=== PATIENT | female | born 1995 | race Caucasian/White ===

== ENCOUNTER 2017-06-15 14:04 | Emergency (ER) | payer OTHER ==
[2017-06-15] MEDS ORDERED: SODIUM CHLORIDE 0.9% 1,000 ML IV STA (15:26)
[2017-06-15] MEDS ORDERED: diphenhydrAMINE 50 MG/ML 1 ML VIAL IVP STA (15:28)
[2017-06-15] MEDS ORDERED: METOCLOPRAMIDE 5 MG/ML 2 ML VIAL IVP STA (15:29)
--- NOTE | 2017-06-15 15:36 | ED ---
General Adult HPI - General Chief complaint: Dizziness Stated complaint: dizzy Time Seen by Provider: 06/15/17 15:09 Source: patient Mode of arrival: ambulatory Limitations: no limitations - History of Present Illness Initial comments: 22-year-old female presents to the emergency department with a chief complaint of dizziness. Patient denies any loss of consciousness or falling. Patient is currently 9 weeks . She has been vomiting multiple times a day for the past couple weeks. Patient states she is able to keep fluids down. She also complains of a headache behind her eyes. She has tried Tylenol once with minimal relief. She states she has been congested for 2 weeks and has been taking Claritin as prescribed by her OB. Denies any tenderness of the facial sinuses or drainage from the nares. Her OB also prescribed her Zofran which she refused to take because of concerns of side effects. Patient denies any fevers or chills or cough. Patient denies any abdominal pain, cramping, or vaginal bleeding. Patient denies chest pain and shortness of breath. - Related Data Allergies Allergy/AdvReac Type Severity Reaction Status Date / Time Pertussis Vaccines Allergy Anaphylaxis Verified 06/15/17 14:31 Review of Systems ROS Statement: Those systems with pertinent positive or pertinent negative responses have been documented in the HPI. ROS Other: All systems not noted in ROS Statement are negative. Past Medical History Past Medical History: No Reported History History of Any Multi-Drug Resistant Organisms: None Reported Past Surgical History: Adenoidectomy, Tonsillectomy Past Psychological History: No Psychological Hx Reported Smoking Status: Never smoker Past Alcohol Use History: None Reported Past Drug Use History: None Reported General Exam Limitations: no limitations Eye exam: Present: normal appearance, PERRL, EOMI. Absent: scleral icterus, conjunctival injection, periorbital swelling ENT exam: Present: normal exam, mucous membranes moist Neck exam: Present: normal inspection. Absent: tenderness, meningismus, lymphadenopathy Respiratory exam: Present: normal lung sounds bilaterally. Absent: respiratory distress, wheezes, rales, rhonchi, stridor Cardiovascular Exam: Present: regular rate, normal rhythm, normal heart sounds. Absent: systolic murmur, diastolic murmur, rubs, gallop, clicks GI/Abdominal exam: Present: soft, normal bowel sounds. Absent: distended, tenderness, guarding, rebound, rigid Extremities exam: Present: normal inspection. Absent: pedal edema Neurological exam: Present: alert, oriented X3, CN II-XII intact Psychiatric exam: Present: normal affect, normal mood Skin exam: Present: warm, dry, intact, normal color. Absent: rash Course Vital Signs 06/15/17 14:29 Temperature 98.0 F Pulse Rate 93 Respiratory 18 Rate Blood Pressure 118/76 O2 Sat by Pulse 96 Oximetry Medical Decision Making - Medical Decision Making 22-year-old female presents to the emergency department for dizziness. Patient is 9 weeks and has been vomiting multiple times a day. Patient cannot keep water down today. Patient also complains of a headache behind her eyes and has had congestion for which she is taking Claritin. No fevers, facial tenderness, or drainage from the nares. This is likely a viral infection or ALLERGIES. Patient has no complaints of abdominal pain, cramping or vaginal bleeding. Patient's vitals are within normal limits. Patient CBC, CMP, and UA came back within normal limits. Patient was given a liter of fluid as well as Reglan, Benadryl, and Tylenol. Patient states she is feeling much better at this time. She is no longer nauseous nor dizzy. She does not feel lightheaded. She is ready to go home. She will continue to take Claritin during the day and Benadryl at night. She will also take Tylenol regularly for the headache until it is no longer an issue. Patient will discuss with OB and primary care options for further nausea control. - Lab Data Result diagrams: 06/15/17 15:41 06/15/17 15:41 Lab Results 06/15/17 06/15/17 06/15/17 Range/Units 15:41 15:41 15:41 WBC 9.2 (3.8-10.6) k/uL RBC 4.95 (3.80-5.40) m/uL Hgb 14.2 (11.4-16.0) gm/dL Hct 40.4 (34.0-46.0) % MCV 81.6 (80.0-100.0) fL MCH 28.6 (25.0-35.0) pg MCHC 35.1 (31.0-37.0) g/dL RDW 12.7 (11.5-15.5) % Plt Count 253 (150-450) k/uL Neutrophils % 74 % Lymphocytes % 18 % Monocytes % 6 % Eosinophils % 0 % Basophils % 0 % Neutrophils # 6.8 (1.3-7.7) k/uL Lymphocytes # 1.7 (1.0-4.8) k/uL Monocytes # 0.5 (0-1.0) k/uL Eosinophils # 0.0 (0-0.7) k/uL Basophils # 0.0 (0-0.2) k/uL Sodium 138 (137-145) mmol/L Potassium 3.6 (3.5-5.1) mmol/L Chloride 100 (98-107) mmol/L Carbon Dioxide 26 (22-30) mmol/L Anion Gap 12 mmol/L BUN 9 (7-17) mg/dL Creatinine 0.55 (0.52-1.04) mg/dL Est GFR (CKD-EPI)AfAm >90 (>60 ml/min/1.73 sqM) Est GFR (CKD-EPI)NonAf >90 (>60 ml/min/1.73 sqM) Glucose 79 (74-99) mg/dL Calcium 9.7 (8.4-10.2) mg/dL Total Bilirubin 0.3 (0.2-1.3) mg/dL AST 37 H (14-36) U/L ALT 49 (9-52) U/L Alkaline Phosphatase 51 (38-126) U/L Total Protein 7.0 (6.3-8.2) g/dL Albumin 4.3 (3.5-5.0) g/dL Urine Color Yellow Urine Appearance Cloudy H (Clear) Urine pH 6.0 (5.0-8.0) Ur Specific [place] 1.018 (1.001-1.035) Urine Protein Negative (Negative) Urine Glucose (UA) Negative (Negative) Urine Blood Negative (Negative) Urine Nitrite Negative (Negative) Urine Bilirubin Negative (Negative) Urine Urobilinogen <2.0 (<2.0) mg/dL Ur Leukocyte Esterase Negative (Negative) Urine RBC 2 (0-5) /hpf Urine WBC 2 (0-5) /hpf Ur Squamous Epith Cells 7 H (0-4) /hpf Urine Bacteria Rare H (None) /hpf Urine Mucus Rare H (None) /hpf Disposition Clinical Impression: Vomiting or nausea of Disposition: HOME SELF-CARE Condition: Good Instructions: Nausea and Vomiting in (ED), Dizziness (ED) Additional Instructions: Please return to the emergency department if symptoms worsen or U lose consciousness. Please continue Claritin during the day and take Benadryl at night. Please use Tylenol for pain relief. Please follow-up with primary care and OB for options regarding nausea. Referrals: Nicholas Leiva MD [Primary Care Provider] - 1-2 days Time of Disposition: 16:24
[2017-06-15] MEDS: ACETAMINOPHEN TAB 500 MG TAB PO STA ×2 (15:51→15:53)
[2017-06-15 16:00] LABS: Basophils % (A) 0 %; Eosinophils % (A) 0 %; HCT 40.4 % (34.0-46.0); HGB 14.2 gm/dL (11.4-16.0); Lymphocytes # (A) 1.7 k/uL (1.0-4.8); Lymphocytes % (A) 18 %; MCH 28.6 pg (25.0-35.0); MCHC 35.1 g/dL (31.0-37.0); MCV 81.6 fL (80.0-100.0); Monocytes # (A) 0.5 k/uL (0-1.0); Monocytes % (A) 6 %; Neutrophils # (A) 6.8 k/uL (1.3-7.7); Neutrophils % (A) 74 %; Platelet Count 253 k/uL (150-450); RBC 4.95 m/uL (3.80-5.40); RDW 12.7 % (11.5-15.5); WBC 9.2 k/uL (3.8-10.6)
[2017-06-15 16:07] LABS: ALT 49 U/L (9-52); AST 37 U/L (14-36); Albumin 4.3 g/dL (3.5-5.0); Alkaline Phosphatase 51 U/L (38-126); Anion Gap 12 mmol/L; Blood Urea Nitrogen 9 mg/dL (7-17); Calcium 9.7 mg/dL (8.4-10.2); Carbon Dioxide 26 mmol/L (22-30); Chloride 100 mmol/L (98-107); Glucose 79 mg/dL (74-99); Potassium 3.6 mmol/L (3.5-5.1); Sodium 138 mmol/L (137-145); Total Bilirubin 0.3 mg/dL (0.2-1.3)
[2017-06-15 16:08] LABS: Appearance,Urine Cloudy (Clear); Bacteria,Urine Rare /hpf; Bilirubin,Urine Negative (Negative); Blood,Urine Negative (Negative); Color,Urine Yellow; Glucose,Urine (UA) Negative (Negative); Ketones,Urine 2+ (Negative); Leukocyte Esterase,Urine Negative (Negative); Mucus,Urine Rare /hpf; Nitrite,Urine Negative (Negative); Protein,Urine Negative (Negative); RBC,Urine 2 /hpf (0-5); Specific Gravity,Urine 1.018 (1.001-1.035); Squamous Epithelial Cell,Urine 7 /hpf (0-4); Urobilinogen,Urine <2.0 mg/dL (<2.0); WBC,Urine 2 /hpf (0-5)
[2017-06-15 16:28] VITALS: BP 120/62; PULSE 78; RESP 15; TEMP 97.9
== END 2017-06-15 16:57 | disposition home or self-care (01) ==
LOC: EC 14:04
DX: O21.0 Mild hyperemesis gravidarum (principal); O99.89 Other specified diseases and conditions complicating pregnancy, childbirth and the puerperium; R42 Dizziness and giddiness; R51 Headache; Z3A.09 9 weeks gestation of pregnancy; Z88.7 Allergy status to serum and vaccine
CPT/HCPCS: 99284; 96374; 96375; 36415; 80053; 85025; 81001; J1200; J2765

== ENCOUNTER 2020-06-18 06:05 | Inpatient (IN) | payer OTHER ==
[2020-06-18] MEDS ORDERED: METHYLERGONOVINE 0.2 MG/ML 1 ML AMP IM PRN (06:17)
[2020-06-18] MEDS ORDERED: CARBOPROST TROMETHAMINE 250 MCG/ML 1 ML AMP IM PRN (06:17)
[2020-06-18] MEDS ORDERED: OXYTOCIN 10 UNIT/ML 1 ML VIAL IM PRN (06:17)
[2020-06-18] MEDS ORDERED: TERBUTALINE 1 MG/ML VIAL SQ PRN (06:17)
[2020-06-18] MEDS ORDERED: LIDOCAINE 0.5% (PF) 5 MG/ML (50 ML SDV) SQ PRN (06:17)
[2020-06-18] MEDS ORDERED: OXYTOCIN 30 UNITS/500 ML NS 30 UNIT in SALINE 1 500ML.BAG IV SCH (06:30)
[2020-06-18] MEDS: LACTATED RINGERS 1,000 ML IV SCH ×2 (06:42→13:38)
[2020-06-18 07:24] LABS: Basophils % (A) 1 %; Eosinophils # (A) 0.1 k/uL (0-0.7); Eosinophils % (A) 1 %; HCT 39.7 % (34.0-46.0); HGB 12.9 gm/dL (11.4-16.0); Hypochromasia Slight; Lymphocytes # (A) 1.9 k/uL (1.0-4.8); Lymphocytes % (A) 25 %; MCH 26.4 pg (25.0-35.0); MCHC 32.5 g/dL (31.0-37.0); Mean Platelet Volume 9.3; Monocytes # (A) 0.6 k/uL (0-1.0); Monocytes % (A) 7 %; Neutrophils # (A) 4.9 k/uL (1.3-7.7); Neutrophils % (A) 65 %; Platelet Count 171 k/uL (150-450); RDW 14.3 % (11.5-15.5); WBC 7.6 k/uL (3.8-10.6)
[2020-06-18] MEDS ORDERED: BUTORPHANOL 1 MG/ML 1 ML VIAL IV PRN (07:56)
--- NOTE | 2020-06-18 08:35 | P.HPOB ---
History of Present Illness H&P Date: 06/18/20 Chief Complaint: Here for induction of labor This is a 25-year-old 2 para 1001 EDC 06/18/2020 at 40 weeks gestation. Patient presents today for induction of labor. She is having mild irregular spontaneous contractions. Fetus is been active throughout the . She denies vaginal bleeding or fluid leakage. Past medical history is negative. Past surgical history cholecystectomy 2018, adenoidectomy and tonsillectomy 2002. Current medications vitamins daily. ALLERGIES to pertussis vaccination, to which she reports convulsion. Family history significant for hypertension, diabetes, cardiac issues. Obstetric history significant for 42 week vaginal delivery 2018 with a third- degree laceration. Social history patient is , she is employed, she denies tobacco alcohol or drug use. history blood type is A+, rubella status nonimmune. VDRL testing, urine culture, hepatitis B surface antigen, HIV testing, gonorrhea and chlamydia cultures, group B strep cultures all negative. One-hour Glucola within normal limits. On exam patient is 5 foot 3 inches, 166 pounds, blood pressure on admission 116/74. Vital signs are stable and she is afebrile. General physical exam is within normal limits. Cervix is 3 cm dilated, 60-70% effaced, -2 station, soft, anterior. Artificial amniorrhexis reveals clear fluid. heart rate is consistent with reactive NST. Impression: 40 week intrauterine , here for induction of labor. All signs reassuring. Plan: Continue close maternal and surveillance. Analgesic options have been reviewed. Oxytocin per hospital protocol. Anticipate normal spontaneous vaginal delivery. The possibility of repeat third-degree laceration or greater has been discussed with the patient and this risk is acceptable to her and her spouse. section and is declined. Review of Systems Constitutional: Reports as per HPI Past Medical History Past Medical History: No Reported History History of Any Multi-Drug Resistant Organisms: None Reported Past Surgical History: Adenoidectomy, Cholecystectomy, Tonsillectomy Past Anesthesia/Blood Transfusion Reactions: No Reported Reaction Past Psychological History: No Psychological Hx Reported Smoking Status: Never smoker Past Alcohol Use History: None Reported Past Drug Use History: None Reported - Past Family History Father History Unknown: Yes Mother History Unknown: Yes Medications and Allergies Home Medications Medication Instructions Recorded Confirmed Type Pnv,Calcium 72/Iron/Folic Acid 1 tab PO DAILY 06/15/17 06/18/20 History [ Plus Tablet] Allergies Allergy/AdvReac Type Severity Reaction Status Date / Time Pertussis Vaccines Allergy Anaphylaxis Verified 06/18/20 06:16 Exam Intake and Output 06/17/20 06/18/20 06/18/20 22:59 06:59 14:59 Other: Weight 75.296 kg 75.296 kg See dictation under HPI please Results Result Diagrams: 06/18/20 06:53 Assessment and Plan Assessment: 40 week intrauterine , here for induction of labor. History of third- degree laceration in the past, declining option of . All signs reassuring Plan: Oxytocin per hospital protocol. Close maternal and surveillance. Anticipate normal spontaneous vaginal delivery. Analgesic options reviewed with the patient. Time with Patient: Less than 30
[2020-06-18] MEDS ORDERED: fentaNYL (PF) 50 MCG/ML 5 ML AMP ONE (13:40)
[2020-06-18] MEDS ORDERED: SODIUM CHLORIDE 0.9% 100 ML BAG ONE (13:40)
[2020-06-18] MEDS ORDERED: ROPIVACAINE 5MG/ML 20ML VIAL ONE (13:40)
[2020-06-18 14:39] LABS: Glucose,Whole Blood 80 mg/dL (75-99)
[2020-06-18] MEDS ORDERED: diphenhydrAMINE ELIXIR 25 MG/10 ML CUP PO PRN (15:50)
[2020-06-18] MEDS ORDERED: LANOLIN CREAM 5 GM TUBE TOPICAL PRN (15:50)
[2020-06-18] MEDS ORDERED: diphenhydrAMINE 50 MG/ML 1 ML VIAL IVP PRN ×2 (15:50)
[2020-06-18] MEDS ORDERED: ACETAMINOPHEN TAB 325 MG TAB PO PRN (15:50)
[2020-06-18] MEDS ORDERED: diphenhydrAMINE 25 MG CAP PO PRN (15:50)
[2020-06-18] MEDS ORDERED: SIMETHICONE 80 MG CHEWABLE PO PRN (15:50)
[2020-06-18] MEDS ORDERED: diphenhydrAMINE 50 MG CAP PO PRN (15:50)
[2020-06-18] MEDS ORDERED: BENZOCAINE/MENTHOL SPRAY 1 GM/SPRAY AEROSOL TOPICAL PRN (15:50)
[2020-06-18] MEDS ORDERED: ZOLPIDEM 5 MG TAB PO PRN (15:50)
[2020-06-18] MEDS ORDERED: HYDROCORTISONE 2.5% RECTAL CREAM 30 GM TUBE RECTAL PRN (15:50)
[2020-06-18] MEDS ORDERED: MEASLES-MUMPS-RUBELLA VACC/PF 12,500 UNIT/0.5 ML VIAL SQ ONE (15:50)
--- NOTE | 2020-06-18 15:50 | P.PROBDLV ---
Vaginal Delivery Note - . Vaginal Delivery Note: This is a 25-year-old white female 2 para 1001 EDC 06/18/2020 at 40 weeks gestation. Patient presents today for induction. Her history is significant for a third to fourth degree laceration with previous delivery, patient declining option for and wishing vaginal delivery. Blood type is A+, rubella status nonimmune, group B strep cultures negative. Please see history and physical for details. On admission artificial amniorrhexis revealed clear fluid. Oxytocin was started and titrated per hospital protocol. Patient complained of pain, offered and received an epidural. She became completely dilated at 1456 hrs. and began the second stage of labor at that time. Perineal body was prepped and draped in usual sterile fashion. With excellent maternal expulsive efforts the 's head delivered occiput anterior and he restituted accordingly. There is no nuchal cord 1 that was easily reduced. The oropharynx, nasopharynx, and external nares were all bulb suctioned. The left or anterior shoulder was gently delivered from underneath the pubic symphysis. Patient was officially delivered of a liveborn male at 1522 hrs. Umbilical cord was doubly clamped and ligated, he was handed to waiting nurses for evaluation where scores of 7 and 9 at one and 5 minutes respectively were assigned. Placenta delivered spontaneously, it was inspected and noted to be intact with trivascular cord at 1524 hours. At this time the perineal body was carefully inspected. Inspection of cervix, vagina, perineum, periurethral, and perirectal areas revealed a small first- degree midline laceration. This was repaired in the usual passage and using 3-0 repeat suture. The perineal body appears well intact. Uterus is massaged. Total estimated blood loss 250 mL's. All sponge needle and enhancement counts are correct at the end of the procedure. Patient is requesting circumcision for her infant son.
[2020-06-18] MEDS: IBUPROFEN 600 MG TAB PO SCH (17:22)
[2020-06-18 19:49] VITALS: RESP 16
[2020-06-18] MEDS: SENNOSIDES-DOCUSATE SODIUM 1 EACH TAB PO SCH (19:51)
[2020-06-19] MEDS: IBUPROFEN 600 MG TAB PO SCH ×4 (01:42→14:44)
--- NOTE | 2020-06-19 08:01 | P.DS ---
Providers Date of admission: 06/18/20 06:05 Expected date of discharge: 06/19/20 Attending physician: Marilu Issa Primary care physician: Stated None Hospital Course: This is a 25-year-old white female 2 para 1001 EDC 06/18/2020 at 40 weeks gestation. Patient presented for induction with favorable multiparous cervix. remarkable for negative group B strep cultures, blood type A positive, rubella status nonimmune. Please see dictated history and physical for details. Artificial amniorrhexis was performed for clear fluid. Oxytocin was started and titrated per hospital protocol. Epidural was placed per her request. She went on to deliver a liveborn male infant vaginally, scores 7 and 9 at one and 5 minutes respectively. There was a nuchal cord 1 that was easily reduced and a first-degree perineal laceration repaired without issue. Infant weighed 7 lbs. 8 oz. or 3420 g. Please see dictated delivery note for details. This morning the patient is doing well. She is voiding, ambulating, passing f latus without difficulty. Vital signs are stable and she is afebrile. Fundus is firm, midline, symmetric, 18 week size. Perineal body is clean and dry. Breasts are not engorged. Extremities reveal no edema. infant is doing well. Patient is requesting discharge home and is judged to be in very good condition for discharge. Patient will follow-up with me in the office in 6 weeks. I have reminded her no intercourse, tampons or douching. She will use [id number] Motrin Advil or Aleve as needed for pain. She will call with any fevers shakes or chills, foul smelling or copious lochia, with the passage of large blood clots, or indeed with any concerns. [place] infant will follow-up with fluid jet cutter operator as per recommended instructions. Assessment: Doing well day #1 Patient Condition at Discharge: Good Plan - Discharge Summary Discharge Rx Participant: No New Discharge Prescriptions: No Action Pnv,Calcium 72/Iron/Folic Acid [ Plus Tablet] 1 tab PO DAILY Discharge Medication List Pnv,Calcium 72/Iron/Folic Acid [ Plus Tablet] 1 tab PO DAILY 06/15/17 [History] Follow up Appointment(s)/Referral(s): Marilu Issa MD [STAFF PHYSICIAN] - 6 Weeks Discharge Disposition: HOME SELF-CARE
[2020-06-19] MEDS: SENNOSIDES-DOCUSATE SODIUM 1 EACH TAB PO SCH (08:08)
[2020-06-19 08:16] VITALS: BP 122/77; PULSE 90; TEMP 97.7
== END 2020-06-19 16:40 | disposition home or self-care (01) | DRG 807 ==
LOC: 4FBP 06:05
PROVIDERS: ADMIT Obstetrics & Gynecology; ATTEND Obstetrics & Gynecology
PROC: 0HQ9XZZ Repair Perineum Skin, External Approach (ICD-10-PCS; principal; 2020-06-18)
PROC: 10907ZC Drainage of Amniotic Fluid, Therapeutic from Products of Conception, Via Natural or Artificial Opening (ICD-10-PCS; principal; 2020-06-18)
PROC: 3E0R3BZ Introduction of Anesthetic Agent into Spinal Canal, Percutaneous Approach (ICD-10-PCS; principal; 2020-06-18)
PROC: 3E033VJ Introduction of Other Hormone into Peripheral Vein, Percutaneous Approach (ICD-10-PCS; principal; 2020-06-18)
PROC: 00HU33Z Insertion of Infusion Device into Spinal Canal, Percutaneous Approach (ICD-10-PCS; principal; 2020-06-18)
PROC: 10E0XZZ Delivery of Products of Conception, External Approach (ICD-10-PCS; principal; 2020-06-18)
PROC: 3E0134Z Introduction of Serum, Toxoid and Vaccine into Subcutaneous Tissue, Percutaneous Approach (ICD-10-PCS; 2020-06-18)
DX: O70.0 First degree perineal laceration during delivery (principal); Z37.0 Single live birth; Z23 Encounter for immunization; Z3A.40 40 weeks gestation of pregnancy; Z79.899 Other long term (current) drug therapy; Z90.49 Acquired absence of other specified parts of digestive tract; Z87.19 Personal history of other diseases of the digestive system; Z90.89 Acquired absence of other organs; Z98.890 Other specified postprocedural states; Z88.7 Allergy status to serum and vaccine; Z82.49 Family history of ischemic heart disease and other diseases of the circulatory system; Z83.3 Family history of diabetes mellitus
CPT/HCPCS: 85025; 86850; 86900; 86901